=== PATIENT | male | born 1995 | race Two or more races ===

== ENCOUNTER 2023-04-14 09:44 | Emergency (ER) | payer OTHER ==
[~2023-04-14] VITALS: Ht 175.3 cm; Wt 82.1 kg
== END 2023-04-14 14:57 | disposition home or self-care (01) ==
LOC: ER 09:45
DX: S93.492A Sprain of other ligament of left ankle, initial encounter (principal); W18.39XA Other fall on same level, initial encounter; Y93.89 Activity, other specified; Y92.89 Other specified places as the place of occurrence of the external cause
CPT/HCPCS: 73610; 96372; 99284; J1885

== ENCOUNTER → 2024-10-29 | Emergency (ER) | payer OTHER ==
[~2024-10-29] VITALS: Ht 177.8 cm; Wt 81.6 kg
[~2024-10-29] MED LIST: CEFTRIAXONE SODIUM 1,000 MG VIAL IM STA; CEFTRIAXONE SODIUM 1,000 MG VIAL ONE; LIDOCAINE HCL 1% 10ML VIAL ONE
[2024-10-29 04:18] LABS: URINE APPEARANCE Clear; URINE BILIRRUBIN Negative (NEGATIVE); URINE BLOOD Small; URINE COLOR Yellow; URINE GLUCOSE Negative (NEGATIVE); URINE KETONE Negative (NEGATIVE); URINE LEUKOCYTE Small; URINE NITRATE Negative; URINE PROTEIN Negative (NEGATIVE); URINE UROBILINOGEN 0.2 E.U./dl
[2024-10-29 04:21] LABS: URINE BACTERIA 1440.6 uL (0.0-1933); URINE WBC 62.5 uL (0.0-23.2)
[2024-10-29 04:28] LABS: URINE RBC 1.6 uL (0.0-20.8)
== END | disposition home or self-care (01) ==
LOC: ER 02:20
DX: R30.0 Dysuria (principal)